=== PATIENT | male | born 1990 | race Caucasian/White ===

== ENCOUNTER 2025-01-22 13:21 | Outpatient (OUT) | payer BC, SELFPAY | END 2025-01-22 13:22 | disposition home or self-care (01) | PROVIDERS: Visit Provider Urology | DX: Z01.818 Encounter for other preprocedural examination (principal) ==

== ENCOUNTER 2025-01-23 07:00 | Day surgery (SDC) | payer BC, SELFPAY ==
[2025-01-23] VITALS (11 sets, daily range): BP systolic 125–151; BP diastolic 78–91; PULSE 59–83; TEMP 36.2–36.4; O2SAT 97–100; BMI 24.3
[2025-01-23] MEDS: LACTATED RINGER'S SOLUTION 1,000 ML 50 ML IV (07:43)
[2025-01-23] MEDS: CEFAZOLIN SODIUM 2 GM/50 ML D5W PREMIX IV (07:45)
[2025-01-23] MEDS: LACTATED RINGER'S SOLUTION 1,000 ML 125 ML IV (08:31)
[2025-01-23] MEDS: BACITRACIN OINTMENT 28.4 GM TUBE 1 APPLIC TOPICAL (09:00)
--- NOTE | 2025-01-23 09:11 | PM.URSON ---
Urology Surgery Operative Note Operative Note Procedure Date: 01/23/25 Time Out Performed: yes Pre-op Diagnosis: Jean male; unable to do vasectomy in office under local. Post-op Diagnosis: same as pre-op Procedures performed: 1. Left hemiscrotal exploration. 2. Right segmental vasectomy. Anesthesia: MAC Primary Surgeon: Carlito Garcia Complications: None Estimated blood loss (mL): 5 Findings: 1. No evidence of left Vas. #2. Normal right Vas. Specimens: Right vasa segment Drains: None Indications for Procedures: This gentleman is a fertile male. Yesterday we attempted a bilateral vasectomy in the office under local but we were unable to palpate his vasa. He now presents for bilateral vasectomy under MAC anesthesia. He has signed an informed consent after risks were explained. Detailed description of Procedure: The patient was brought to the operating room and placed on the operating room table in the supine position. A timeout was done by all parties in the room. We all agreed upon the patient's identification and the planned procedures for this patient. MAC anesthesia was then administered. His genitalia were sterilely prepped and draped in the usual fashion. I started on the left hemiscrotum. I was unable to truly appreciate of vasa on exam. Therefore, I extended his incision with a 15 blade scalpel and used the Bovie to sharply dissect down to the spermatic cord. I delivered the testicle and spermatic cord and placed a Anupam around the cord. Of note is that he did have a sizable spermatocele. I then carefully evaluated the cord. I kept feeling the cord very carefully in a detailed manner. I never found any evidence of a Vas. I then turned my attention to the right side. I similarly extended the right sided incision. I then palpated the cord and I thought I could feel the vas. I then used the Lela grasping ring forceps and grasped it. I then brought this out the incision and freed up the loop of vas. This was in fact the vas. Both ends of the vas were clamped with a hemostat. I then transected the vas and sent a segment for pathology. The remaining ends were coagulated with the Bovie cautery. I then tied each end with a 2-0 Vicryl tie. I then everted the proximal end upon itself with a 4-0 Vicryl stitch. Once hemostasis was verified the ends were allowed to fall back in the hemiscrotum. These were at separate levels. Tiny bleeders were coagulated with the Bovie cautery. I then closed the skin with 4-0 Vicryl in an running fashion. We then turned back to the left side and we reexamined the cord another time in great detail. I still found no evidence of a vas. The left hemiscrotal contents were then placed back into the scrotum in the proper anatomic orientation. I then closed the subcu with 3-0 Vicryl in an interrupted fashion and then the skin was closed with 4-0 Vicryl in a running fashion. Bacitracin ointment was applied to the incisions. Sterile fluffs were placed and a scrotal support was then applied. He was then transferred to a [facility] bed and wheeled to PACU in stable condition.
== END 2025-01-23 10:58 | disposition home or self-care (01) ==
PROVIDERS: Visit Provider Urology
PROC: (CPT 00921; principal; 2025-01-23 08:00)
DX: Z30.2 Encounter for sterilization (principal); N43.40 Spermatocele of epididymis, unspecified; Z87.891 Personal history of nicotine dependence
CPT/HCPCS: 00921; 55250; 88302; J0690; J1100; J2175; J2250; J2405; J2704; J3010